=== PATIENT | female | born 1985 | race Hispanic/Latino ===

== ENCOUNTER 2020-09-01 17:22 | Emergency (ER) | payer MEDICARE ==
[~2020-09-01] VITALS: Ht 160 cm; Wt 70.3 kg
[2020-09-01] MEDS ORDERED: CEPHALEXIN500 MG PO (21:13)
[2020-09-01 21:25] VITALS: BP 109/62
== END 2020-09-01 21:25 | disposition home or self-care (01) ==
LOC: FSED 17:37
DX: O20.9 Hemorrhage in early pregnancy, unspecified (principal); O20.0 Threatened abortion; O23.41 Unspecified infection of urinary tract in pregnancy, first trimester
CPT/HCPCS: 36415; 76801; 80053; 81003; 84702; 85025; 86900; 99284

== ENCOUNTER 2020-09-03 18:04 | Emergency (ER) | payer MEDICARE ==
[~2020-09-03] VITALS: Ht 160 cm; Wt 68.5 kg
[~2020-09-03 18:04] MED LIST: CEPHALEXIN500 MG PO
[2020-09-03 21:19] LABS: ANION GAP 11.6 mmol/L (8-16); BLOOD UREA NITROGEN 12 mg/dL (7-26); BUN/CREATININE RATIO 17 (6-25); CALCIUM 8.8 mg/dL (8.4-10.2); CARBON DIOXIDE 27 mmol/L (22-29); CHLORIDE 103 mmol/L (98-107); CREATININE, SERUM 0.72 mg/dL (0.57-1.11); EST GLOMERULAR FILTRATION RATE > 60 ML/MIN (60-); GLUCOSE 69 mg/dL (74-118); POTASSIUM 3.6 mmol/L (3.5-5.1); SODIUM 138 mmol/L (136-145)
[2020-09-03 22:20] VITALS: BP 101/69
== END 2020-09-03 22:20 | disposition home or self-care (01) ==
LOC: FSED 18:14
DX: O20.9 Hemorrhage in early pregnancy, unspecified (principal); O20.0 Threatened abortion; O23.41 Unspecified infection of urinary tract in pregnancy, first trimester
CPT/HCPCS: 36415; 76817; 80048; 84702; 99284